=== PATIENT | female | born 1975 | race African-American/Black ===

== ENCOUNTER 2018-01-02 10:02 | Emergency (ER) | payer OTHER ==
[~2018-01-02] VITALS: Ht 172.7 cm; Wt 81.6 kg
[2018-01-02 10:55] VITALS: BP 105/74; Ht 172.7 cm; Wt 81.6 kg
== END 2018-01-02 13:34 | disposition left against medical advice (07) ==
LOC: ED 10:02
DX: Z53.21 Procedure and treatment not carried out due to patient leaving prior to being seen by health care provider (principal)